=== PATIENT | female | born 1940 | race Caucasian/White ===

== ENCOUNTER 2019-04-25 18:28 | Inpatient (IN) | payer MEDICARE, OTHER ==
[~2019-04-25] VITALS: Ht 167 cm; Wt 6.4 kg
[~2019-04-25 18:28] MED LIST: ACHD5005 PO; BISA5TAB8 PO; DILT120C85 PO; FERR256T PO; HUM100VI SQ; HUM100VI12 SQ; HUM100VI15 SQ; HUM10VIA2 SQ; IBUP-30 PO; INSN1U SQ; INSU100V31 SQ; IRON150C3 PO; LISI1TAB10 PO; LISI1TAB26 PO; LISI40TA PO; MIRT15TA3 PO; NPH,100V SQ; SCOPOLAMINE 1.5 MG (TRANSDERM-SCOP) PATCH TOP SCH
[2019-04-25 18:44] LABS: BASOPHILS % (AUTO) 0 % (0-10); EOSINOPHILS % (AUTO) 0 % (0-10); HEMATOCRIT 35 % (35-52); HEMOGLOBIN 10.5 G/DL (11.5-16.0); LYMPHOCYTES # (AUTO) 0.8 X 10^3 (1.0-4.0); LYMPHOCYTES % (AUTO) 5 % (12-44); MEAN CORPUSCULAR HEMOGLOBIN 28 PG (25-34); MEAN CORPUSCULAR HGB CONC 30 G/DL (32-36); MEAN CORPUSCULAR VOLUME 93 FL (80-99); MONOCYTES # (AUTO) 0.9 X 10^3 (0.0-1.0); MONOCYTES % (AUTO) 5 % (0-12); NEUTROPHILS % (AUTO) 91 % (42-75); PLATELET COUNT 505 10^3/uL (130-400); RED CELL DISTRIBUTION WIDTH 15.7 % (10.0-14.5); WHITE BLOOD COUNT 18.7 10^3/uL (4.3-11.0)
[2019-04-25] MEDS ORDERED: inSUlin (REGULAR) HUMAN 1 UNIT/0.01 ML (CHARGE PER UNIT) IJ ONE (18:45)
[2019-04-25 18:56] LABS: INR 1.5 (0.8-1.4); PROTHROMBIN TIME PATIENT 18.9 SEC (12.2-14.7)
[2019-04-25] MEDS ORDERED: inSUlin (REGULAR) HUMAN 1 UNIT/0.01 ML (CHARGE PER UNIT) IV ONE ×2 (19:00→20:00)
[2019-04-25] MEDS ORDERED: NS IV 1000 ML 1,000 ML ONE (19:02)
--- NOTE | 2019-04-25 19:08 | ED General ---
General Chief Complaint: Altered Mental Status Stated Complaint: ALTERED MENTAL STATUS Nursing Triage Note: PT PRESENTS TO ED VIA EMS FROM HOME WITH CONCERNS OF AMS SINCE THIS AM BUT PROGRESSIVLEY GETTING WORSE TODAY. PT FAMILY DENIES ANY RECENT KNOWN FALLS. ACCORDING TO EMS PT NORMALLY VERBAL AND RESPONSIVE. UPON PT ARRIVAL TO ED PT EYES OPEN AND SHE IS ABLE TO FOLLOW SOME DIRECTIONS BUT REMAINS NON VERBAL Nursing Sepsis Screen: Possible Severe Sepsis Risk Source of Information: Patient, Old Records Exam Limitations: No Limitations History of Present Illness Date Seen by Provider: Apr 25, 2019 Time Seen by Provider: 18:29 Initial Comments This 79-year-old woman presents to the emergency room with significantly altered mental status. She is also hypotensive with systolic blood pressures in the 80s and an immeasurably high blood sugar. Family reports she was last known to be normal sometime early yesterday. She was not quite herself yesterday evening. She lives with her at home. When her children check on her this evening, they found her in her current state. She has skin tears and abrasions to her elbows but there is no known trauma. She is responsive to pain but is not talking at this time other than answering "yes" when asked about pain. She is also noted to have arrhythmia on the criminal attorney. Family reports she has been declining in recent years and has not been eating or drinking well recentl y. They report she is a DO NOT RESUSCITATE status. Her primary care provider is Dr. Velasquez. Family notes she has blind from macular degeneration. Allergies and Home Medications Allergies Coded Allergies: No Known Drug Allergies (Verified , 03/07/15) Home Medications Insulin NPH Human Isophane 100 Unit/1 Ml Vial, 15 UNIT SQ DAILY Prescribed by: DANG VELASQUEZ on 05/20/15 1113 Iron Polysaccharide Complex 150 Mg Capsule, 150 MG PO DAILY@0700 Prescribed by: DANG VELASQUEZ on 05/20/15 1111 Mirtazapine 15 Mg Tab.rapdis, 15 MG PO HS Prescribed by: DANG VELASQUEZ on 05/20/15 1554 Patient Home Medication List Home Medication List Reviewed: Yes Review of Systems Review of Systems Constitutional: no symptoms reported EENTM: no symptoms reported Respiratory: no symptoms reported Cardiovascular: see HPI Gastrointestinal: no symptoms reported Genitourinary: no symptoms reported : No Musculoskeletal: no symptoms reported Skin: no symptoms reported Psychiatric/Neurological: See HPI Hematologic/Lymphatic: No Symptoms Reported Immunological/Allergic: no symptoms reported Past Tynezgb-Vojivc-Kbdmjy Hx Past Med/Social Hx: Reviewed and Corrections made Patient Social History Alcohol Use: Denies Use Recreational Drug Use: No Smoking Status: Unknown if Ever Smoked Recent Foreign Travel: No Contact w/Someone Who Travel: No Recent Infectious Disease Expo: No Immunizations Up To Date Date of Influenza Vaccine: Dec 05, 2014 Past Medical History Surgeries: Yes (LESION FROM NARE) Respiratory: No Currently Using CPAP: No Cardiac: Yes Hypertension Neurological: No Reproductive Disorders: No Female Reproductive Disorders: Denies Sexually Transmitted Disease: No HIV/AIDS: No Gastrointestinal: No Musculoskeletal: No Endocrine: Yes Diabetes, 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 Hearing Impairment: Hard of Hearing Cancer: No Psychosocial: No Integumentary: No Recent Skin Changes Blood Disorders: No Adverse Reaction/Blood Tranf: No Family Medical History Alcoholism 09 SISTER Family history: Allergy 09 SISTER Family history: Diabetes mellitus 03 MOTHER 09 SISTER Family history: Hypertension 03 MOTHER 09 BROTHER History of - respiratory disease 09 BROTHER Hypercholesterolemia 09 BROTHER No Family History of: Abdominal aortic aneurysm Lincoln's disease Aphasia Cancer Cancer of colon Cataract Chest pain Congenital heart disease Congestive heart failure Cystic fibrosis Dementia Dysphagia Family history: Alzheimer's disease Family history: Arthritis Family history: Asthma Family history: Breast disease Family history: Cardiovascular disease Family history: Coronary thrombosis Family history: Gastrointestinal disease Family history: Glaucoma Family history: Osteoporosis Family history: Thyroid disorder Headache Hearing loss Heart disease Hereditary disease History of - anemia History of - disorder History of drug abuse Human immunodeficiency virus (HIV) seropositivity Infertile Kidney disease Malignant neoplasm of lung Myocardial infarction Parkinson's disease Prostate cancer Psychotic disorder Seizure disorder Stroke Tuberculosis Visual impairment No Pertinent Family Hx Physical Exam-Suspected Sepsis Physical Exam Vital Signs Vital Signs - First Documented 04/25/19 04/25/19 18:42 21:28 Temp 35.0 Pulse 59 Resp 30 B/P (MAP) 91/60 (70) Pulse Ox 98 O2 Delivery Room Air Capillary Refill : Greater Than 3 Seconds Blood Pressure Mean: 70 Height, Weight, BMI Height: 5'1.00" Weight: 148lbs. 0.0oz. 67.521219kh; 22.00 BMI Method: General Appearance: No Apparent Distress, WD/WN, Other (minimally responsive) HEENT: PERRL/EOMI, Normal ENT Inspection Neck: Normal Inspection; No JVD Respiratory: Lungs Clear, Normal Breath Sounds, No Accessory Muscle Use, No Respiratory Distress, Other (slightly) Cardiovascular: No Edema, No Murmur, Irregularly Irregular Gastrointestinal: Normal Bowel Sounds, Soft, Tenderness (suprapubic region) Extremity: Normal Inspection, No Pedal Edema Neurologic/Psychiatric: Alert, Other (response to pain and has spontaneous movement of the extremities. Answers "yes" when questioned about pain in the abdomen. Patient is not otherwise having any meaningful conversation or responses. She does localize to pain.) Skin: normal color, warm/dry Focused Exam Lactate Level 04/25/19 18:30: Lactic Acid Level 7.75*H Lactic Acid Level Laboratory Tests Test 04/25/19 18:30 Lactic Acid Level 7.75 MMOL/L (0.50-2.00) *H Progress/Results/Core Measures Suspected Sepsis Recent Fever Within 48 Hours: No Infection Criteria Present: Suspected New Infection New/Unexplained Altered Menta: Yes Sepsis Screen: Possible Severe Sepsis Risk SIRS Temperature: Pulse: 59 Respiratory Rate: 30 Laboratory Tests 04/25/19 18:30: White Blood Count 18.7H Blood Pressure 91 /60 Mean: 70 04/25/19 18:30: Lactic Acid Level 7.75*H Laboratory Tests 04/25/19 18:30: Creatinine 5.15H, INR Comment 1.5H, Platelet Count 505H, Total Bilirubin 0.4 Results/Orders Lab Results Laboratory Tests Test 04/25/19 18:30 04/25/19 19:45 04/25/19 19:51 Range/Units White Blood Count 18.7 H 4.3-11.0 10^3/uL Red Blood Count 3.76 L 4.35-5.85 10^6/uL Hemoglobin 10.5 L 11.5-16.0 G/DL Hematocrit 35 35-52 % Mean Corpuscular Volume 93 80-99 FL Mean Corpuscular Hemoglobin 28 25-34 PG Mean Corpuscular Hemoglobin Concent 30 L 32-36 G/DL Red Cell Distribution Width 15.7 H 10.0-14.5 % Platelet Count 505 H 130-400 10^3/uL Mean Platelet Volume 13.0 H 7.4-10.4 FL Neutrophils (%) (Auto) 91 H 42-75 % Lymphocytes (%) (Auto) 5 L 12-44 % Monocytes (%) (Auto) 5 0-12 % Eosinophils (%) (Auto) 0 0-10 % Basophils (%) (Auto) 0 0-10 % Neutrophils # (Auto) 17.0 H 1.8-7.8 X 10^3 Lymphocytes # (Auto) 0.8 L 1.0-4.0 X 10^3 Monocytes # (Auto) 0.9 0.0-1.0 X 10^3 Eosinophils # (Auto) 0.0 0.0-0.3 10^3/uL Basophils # (Auto) 0.0 0.0-0.1 10^3/uL Neutrophils % (Manual) 87 % Lymphocytes % (Manual) 6 % Monocytes % (Manual) 3 % Band Neutrophils 4 % Blood Morphology Comment NORMAL Prothrombin Time 18.9 H 12.2-14.7 SEC INR Comment 1.5 H 0.8-1.4 Activated Partial Thromboplast Time 28 24-35 SEC Sodium Level 116 *L 135-145 MMOL/L Potassium Level 5.7 H 3.6-5.0 MMOL/L Chloride Level 83 L 98-107 MMOL/L Carbon Dioxide Level < 5 *L 21-32 MMOL/L Anion Gap 28 H 5-14 MMOL/L Blood Urea Nitrogen 146 *H 7-18 MG/DL Creatinine 5.15 H 0.60-1.30 MG/DL Estimat Glomerular Filtration Rate 8 BUN/Creatinine Ratio 28 Glucose Level 1705 *H 70-105 MG/DL Lactic Acid Level 7.75 *H 0.50-2.00 MMOL/L Calcium Level 9.0 8.5-10.1 MG/DL Corrected Calcium 9.3 8.5-10.1 MG/DL Total Bilirubin 0.4 0.1-1.0 MG/DL Aspartate Amino Transf (AST/SGOT) 66 H 5-34 U/L Alanine Aminotransferase (ALT/SGPT) 23 0-55 U/L Alkaline Phosphatase 93 40-136 U/L Troponin I 84.769 *H <0.028 NG/ML C-Reactive Protein High Sensitivity 10.84 H 0.00-0.50 MG/DL Total Protein 6.5 6.4-8.2 GM/DL Albumin 3.6 3.2-4.5 GM/DL Urine Color YELLOW Urine Clarity CLEAR Urine pH 7.5 5-9 Urine Specific [place] 1.010 L 1.016-1.022 Urine Protein 1+ H NEGATIVE Urine Glucose (UA) 3+ H NEGATIVE Urine Ketones NEGATIVE NEGATIVE Urine Nitrite NEGATIVE NEGATIVE Urine Bilirubin NEGATIVE NEGATIVE Urine Urobilinogen 0.2 < = 1.0 MG/DL Urine Leukocyte Esterase TRACE H NEGATIVE Urine RBC (Auto) TRACE-I NEGATIVE Urine RBC RARE /HPF Urine WBC 10-25 H /HPF Urine Squamous Epithelial Cells 0-2 /HPF Urine Crystals NONE /LPF Urine Bacteria MODERATE H /HPF Urine Casts NONE /LPF Urine Mucus NEGATIVE /LPF Urine Culture Indicated YES Glucometer > 600 *H 70-110 MG/DL Micro Results Microbiology 04/25/19 Influenza Types A,B Antigen ([facility]) - Final, Complete My Orders Orders - FIDEL WALLS MD Accucheck Stat ONCE (04/25/19 18:35) Cbc With Automated Diff (04/25/19 18:35) Comprehensive Metabolic Panel (04/25/19 18:35) Blood Culture (04/25/19 18:35) Sputum Culture (04/25/19 18:35) Urinalysis (04/25/19 18:35) Protime With Inr (04/25/19 18:35) Partial Thromboplastin Time (04/25/19 18:35) Chest 1 View, Ap/Pa Only (04/25/19 18:35) Ed Iv/Invasive Line Start (04/25/19 18:35) Ed Iv/Invasive Line Start (04/25/19 18:35) Vital Signs Adult Sepsis Patie Q15M (04/25/19 18:35) O2 (04/25/19 18:35) Remove Rings In Anticipation O (04/25/19 18:35) Lactic Acid Analyzer (04/25/19 18:35) Influenza A And B Antigens (04/25/19 18:35) Insulin (Regular) Human (Humulin R (Per (04/25/19 18:45) Accucheck Stat ONCE (04/25/19 18:44) Accucheck Stat ONCE (04/25/19 18:44) Accucheck Stat ONCE (04/25/19 18:44) Insulin (Regular) Human (Humulin R (Per (04/25/19 19:00) Manual Differential (04/25/19 18:30) Salguero Cath (04/25/19 18:51) Ct Head Wo-R/O Stroke (04/25/19 18:53) Ns Iv 1000 Ml (Sodium Chloride 0.9%) (04/25/19 19:02) Ekg Tracing (04/25/19 19:14) Hs C Reactive Protein (04/25/19 19:15) Troponin I (04/25/19 19:15) Insulin (Regular) Human (Humulin R (Per (04/25/19 20:00) Urine Culture (04/25/19 19:45) Morphine Injection (Morphine Injection (04/25/19 20:45) Morphine Injection (Morphine Injection (04/25/19 21:04) Medications Given in ED Current Medications Medications Dose Ordered Sig/Delvis Route Start Time Stop Time Status Last Admin Dose Admin Insulin Human Regular 5 unit ONCE ONCE IV 04/25/19 19:00 04/25/19 19:01 DC 04/25/19 18:51 5 UNIT Insulin Human Regular 5 unit ONCE ONCE IV 04/25/19 20:00 04/25/19 20:01 DC 04/25/19 19:56 5 UNIT Sodium Chloride 1,000 ml @ STK-MED ONCE .ROUTE 04/25/19 19:02 04/25/19 19:08 DC 04/25/19 19:12 1,000 MLS/HR Vital Signs/I&O 04/25/19 04/25/19 04/25/19 04/25/19 18:42 21:25 21:28 21:48 Temp 35.0 30.0 Pulse 59 61 Resp 30 36 B/P (MAP) 91/60 (70) 89/60 Pulse Ox 98 71 O2 Delivery Room Air Room Air Capillary Refill : Greater Than 3 Seconds Blood Pressure Mean: 70 Progress Note : Time: 20:22 Progress Note Last known well time was sometime yesterday. Septic workup was pursued along with CT of the head. Patient was found to have several severe conditions including subacute right-sided CVA, non-ST elevation myocardial infarction with an extremely high troponin, severe hyperglycemia, acute renal failure, and urinary tract infection. Prognosis is extremely poor. Case was discussed with Dr. Velasquez. He and I agree that aggressive care is futile. Even if Mrs. Lugo survives for a time, she will not recover quality of life. The situation was discussed with the patient's son and [id number]. They have elected comfort care. They will assess the situation in the morning to determine if they would like transfer to a residential on hospice. We are looking to patient's son as next of kin for decision making as patient's has significant dementia. Dr. Velasquez and family report is not a competent decision maker. ECG Initial ECG Impression Date: Apr 25, 2019 Initial ECG Impression Time: 19:06 Initial ECG Rate: 92 Initial ECG Impression: Atrial Fibrillation Comment Atrial fibrillation with left bundle branch block. No ST elevation or depression. No axis deviation. Diagnostic Imaging Diagonstic Imaging: Xray Plain Films/CT/US/NM/MRI: chest Comments Chest x-ray viewed by me an report reviewed. See report below: NAME: CAMPBELL [employer]U [employer] REC#: [id number] PT STATUS: REG ER : 1940 PHYSICIAN: FIDEL WALLS MD ADMIT DATE: 04/25/19/ER Draft Date of Exam:04/25/19 CHEST 1 VIEW, AP/PA ONLY INDICATION: Acute mental status changes, progressively getting worse. FINDINGS: Frontal view of the chest demonstrates the lungs to be clear. Heart, mediastinum, and pulmonary vascularity are normal. There are no pleural effusions. IMPRESSION: Negative chest Dictated on workstation # [id number] Dict: 04/25/191936 Trans: 04/25/191938 [facility] [id number] Interpreted by: JAY JAY MANN MD Diagonstic Imaging: CT Plain Films/CT/US/NM/MRI: head Comments CT head viewed by me and report reviewed. See report below: NAME: CAMPBELL CHU [employer] REC#: [id number] PT STATUS: REG ER : 1940 PHYSICIAN: FIDEL WALLS MD ADMIT DATE: 04/25/19/ER Signed Date of Exam:04/25/19 CT HEAD WO-R/O STROKE PROCEDURE: CT head wo r/o stroke. TECHNIQUE: Multiple contiguous axial images were obtained through the brain without the use of intravenous contrast. Auto Exposure Controls were utilized during the CT exam to meet ALARA standards for radiation dose reduction. INDICATION: Acute mental status changes progressively getting worse today. No known recent falls. Patient is normally verbal and responsive. FINDINGS: Noncontrast CT scan of the head demonstrates a subacute infarct of the right posterior parietal lobe. No mass effect, midline shift, or hemorrhage is present. 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 Atrophy is present. Osseous structures are normal. IMPRESSION: 1. There is a subacute nonhemorrhagic infarct in the right parietal lobe. 2. 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 Dictated by: Dictated on workstation # [id number] Dict: 04/25/191938 Trans: 04/25/191956 [facility] [id number] Interpreted by: JAY JAY MANN MD Electronically signed by: JAY JAY MANN MD 04/25/191956 Departure Communication (Admissions) Time/Spoke to Admitting Phy: 19:55 Dr. Velasquez Impression Primary Impression: Acute CVA (cerebrovascular accident) Additional Impressions: Non-ST elevation myocardial infarction (NSTEMI) Hyperglycemia Acute renal failure Qualified Codes: N17.9 - Acute kidney failure, unspecified Urinary tract infection Qualified Codes: N39.0 - Urinary tract infection, site not specified Need for comfort care Disposition: ADMITTED INPATIENT Condition: Critical Admissions Decision to Admit Reason: Admit from ER (General) Decision to Admit/Date: Apr 25, 2019 Time/Decision to Admit Time: 18:30 Departure-Patient Inst. Referrals: DANG VELASQUEZ MD (PCP/Family) Primary Care Physician FIDEL WALLS MD Apr 25, 2019 7:08 pm
[2019-04-25 19:13] LABS: ALANINE AMINOTRANSFERASE 23 U/L (0-55); ALBUMIN 3.6 GM/DL (3.2-4.5); ALKALINE PHOSPHATASE 93 U/L (40-136); BILIRUBIN,TOTAL 0.4 MG/DL (0.1-1.0); BUN/CREATININE RATIO 28; CHLORIDE 83 MMOL/L (98-107); CREATININE SERUM 5.15 MG/DL (0.60-1.30); GFR ESTIMATED 8; POTASSIUM 5.7 MMOL/L (3.6-5.0); TOTAL PROTEIN 6.5 GM/DL (6.4-8.2)
[2019-04-25 19:16] LABS: BAND NEUTROPHILS 4 %; LYMPHOCYTES % (MANUAL) 6 %; MONOCYTES % (MANUAL) 3 %; NEUTROPHILS % (MANUAL) 87 %; RBC MORPH NORMAL
[2019-04-25 19:38] LABS: SODIUM 116 MMOL/L (135-145)
[2019-04-25 19:40] LABS: CARBON DIOXIDE < 5 MMOL/L (21-32)
--- NOTE | 2019-04-25 19:40 | Diagnostic Imaging Report ---
INDICATION: Acute mental status changes, progressively getting worse. FINDINGS: Frontal view of the chest demonstrates the lungs to be clear. Heart, mediastinum, and pulmonary vascularity are normal. There are no pleural effusions. IMPRESSION: Negative chest Dictated by: Dictated on workstation # [id number]
--- NOTE | 2019-04-25 19:50 | Diagnostic Imaging Report ---
PROCEDURE: CT head wo r/o stroke. TECHNIQUE: Multiple contiguous axial images were obtained through the brain without the use of intravenous contrast. Auto Exposure Controls were utilized during the CT exam to meet ALARA standards for radiation dose reduction. INDICATION: Acute mental status changes progressively getting worse today. No known recent falls. Patient is normally verbal and responsive. FINDINGS: Noncontrast CT scan of the head demonstrates a subacute infarct of the right posterior parietal lobe. No mass effect, midline shift, or hemorrhage is present. 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 Atrophy is present. Osseous structures are normal. IMPRESSION: 1. There is a subacute nonhemorrhagic infarct in the right parietal lobe. 2. 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 Dictated by: Dictated on workstation # [id number]
--- NOTE | 2019-04-25 19:51 | NUR ---
reported to dr spring blood glucose per finger stick greater than 600
[2019-04-25 19:53] LABS: BILIRUBIN,URINE NEGATIVE (NEGATIVE); CLARITY,URINE CLEAR; COLOR,URINE YELLOW; GLUCOSE, URINE (UA) 3+ (NEGATIVE); KETONES,URINE NEGATIVE (NEGATIVE); LEUKOCYTE ESTERASE ,URINE TRACE (NEGATIVE); NITRITE,URINE NEGATIVE (NEGATIVE); PH,URINE 7.5 (5-9); PROTEIN,URINE 1+ (NEGATIVE)
[2019-04-25 20:00] LABS: BACTERIA,URINE MODERATE /HPF; RBC,URINE RARE /HPF
[2019-04-25 20:01] LABS: SQUAMOUS EPITHELIAL CELL,UR 0-2 /HPF
[2019-04-25 20:12] LABS: GLUCOSE 1705 MG/DL (70-105)
--- NOTE | 2019-04-25 20:29 | NUR ---
MONITORING STOPPED AT THIS TIME PER DR SOMMER, PATIENT IS NOW COMFORT CARE. STUDENT DEVELOPMENT ADVISOR CALLED FOR ROOM ASSIGNMENT.
[2019-04-25] MEDS ORDERED: morphine INJ 10 MG/ML 1ML (SYR OR VIAL) IVP STA ×2 (20:45→21:04)
[2019-04-25] MEDS ORDERED: LORazepam INJ 2 MG/ML (ATIVAN) VIAL ONE (21:45)
[2019-04-25 21:48] VITALS: BP 89/60
[2019-04-25] MEDS ORDERED: GLYCOPYRROLATE 0.2 MG/ML (ROBINUL) 2 ML VIAL IV PRN (22:15)
[2019-04-25] MEDS ORDERED: ARTIFICAL TEARS 0.4 ML UNIT DOSE (REFRESH PLUS) OU PRN (22:15)
[2019-04-25] MEDS ORDERED: LORazepam ORAL CONCENTRATE 2 MG/ML 30 ML (ATIVAN) PO PRN (22:15)
[2019-04-25] MEDS ORDERED: ACETAMINOPHEN 650 MG SUPP (TYLENOL) PR PRN (22:15)
[2019-04-25] MEDS ORDERED: morphine INJ 4 MG/ML 1 ML (VIAL/SYRINGE) IV PRN (22:15)
[2019-04-25] MEDS ORDERED: BISACODYL 10 MG SUPP (DULCOLAX) PR PRN (22:15)
[2019-04-25] MEDS ORDERED: RT-ALBUTEROL/IPRATROPIUM 3 ML (DUONEB) VIAL INH PRN (22:15)
[2019-04-25] MEDS ORDERED: ONDANSETRON 4 MG/2 ML (SDV) Z0FRAN IV PRN (22:15)
[2019-04-25] MEDS ORDERED: ATROPINE 1% OPHTHALMIC SOLN 2 ML SL PRN (22:15)
[2019-04-25] MEDS ORDERED: PROMETHAZINE INJ 25 MG/ML (PHENERGAN) AMP IV PRN (22:15)
[2019-04-25] MEDS ORDERED: SALIVA STIMULANT MOUTH SPRAY (BIOTENE) 1.5 OZ MM PRN (22:15)
[2019-04-25] MEDS ORDERED: LORazepam INJ 2 MG/ML (ATIVAN) VIAL IV PRN (22:15)
--- NOTE | 2019-04-26 03:46 | NUR ---
Post-mortem care provided at this time. IV and Salguero removed. Family notified at 0333.
--- NOTE | 2019-04-26 05:10 | NUR ---
Two rings that were on the pt were taken by family.
--- NOTE | 2019-04-26 05:18 | NUR ---
Susu mccormack Severy notified pt is ready to be picked up.
--- OUTSIDE RECORDS SUMMARY | 2019-04-27 20:35 | XMS REPORT | Continuity of Care Document ---
Author Organization Unknown Address Unknown Phone Unavailable Allergies Active Description Code Type Severity Reaction Onset Reported/Identified Relationship to Patient Clinical Status Yes No Known Drug Allergies [id number] Drug Allergy Unknown N/A 03/07/2015 Medications There is no data. Problems Date Dx Coded Attending Type Code Diagnosis Diagnosed By 12/29/2012 IWONA ALAS, DANG Bateman Ot 250. 52 12/29/2012 DANG BUSTILLO MD Ot 250. 62 12/29/2012 IWONA ALAS, DANG Bateman Ot 250. 82 12/29/2012 DANG BUSTILLO MD Ot 272. 4 12/29/2012 DANG BUSTILLO MD Ot 276. 1 12/29/2012 DANG BUSTILLO MD Ot 280. 9 12/29/2012 DANG BUSTILLO MD Ot 357. 2 12/29/2012 DANG BUSTILLO MD Ot 362. 01 12/29/2012 DANG BUSTILLO MD Ot 369. 4 12/29/2012 IWONA ALAS, DANG Bateman Ot 401. 9 12/29/2012 IWONA ALAS, DANG Bateman Ot 799. 3 12/29/2012 DANG BUSTILLO MD Ot E944 .3 12/29/2012 DANG BUSTILLO MD Ot V04. 81 12/29/2012 DANG BUSTILLO MD Ot V15. 81 12/29/2012 DANG BUSTILLO MD Ot V58. 67 01/26/2013 LOWE DDS, NEO Ot 173.3 1 01/26/2013 LOWE DDS, NEO Ot 250.0 0 01/26/2013 LOWE DDS, NEO Ot V64.1 07/26/2013 ARACELIS ALAS, CUCO Ot 173.31 07/26/2013 ARACELIS ALAS, CUCO Ot 250.00 07/26/2013 ARACELIS ALAS, CUCO Ot V58.67 12/23/2014 DANG BUSTILLO MD Ot E11. 9 TYPE 2 DIABETES MELLITUS WITHOUT COMPLIC 12/23/2014 DANG BUSTILLO MD Ot K59. 00 CONSTIPATION, UNSPECIFIED 12/23/2014 IWONA ALAS, DANG Bateman Ot K62. 89 OTHER SPECIFIED DISEASES OF ANUS AND REC 12/23/2014 IWONA ALAS, DANG Bateman Ot R10. 9 UNSPECIFIED ABDOMINAL PAIN 12/25/2014 LOWE DDS, NEO Ot 173.3 1 12/25/2014 LOWE DDS, NEO Ot V72.6 3 12/25/2014 LOWE DDS, NEO Ot V74.8 12/25/2014 LOWE DDS, NEO Ot 173.3 1 12/25/2014 LOWE DDS, NEO Ot V72.8 4 12/25/2014 ARACELIS ALAS, TAKAAKI Ot 709.9 12/25/2014 ARACELIS ALAS, TAKAAKI Ot V72.84 02/28/2015 LOWE DDS, NEO Ot 173.3 1 02/28/2015 LOWE DDS, NEO Ot V72.6 3 02/28/2015 LOWE DDS, NEO Ot V74.8 02/28/2015 LOWE DDS, NEO Ot 173.3 1 02/28/2015 LOWE DDS, NEO Ot V72.8 4 02/28/2015 ARACELIS ALAS, TAKAAKI Ot 709.9 02/28/2015 ARACELIS ALAS, TAKAAKI Ot V72.84 02/28/2015 IWONA ALAS, DANG Bateman Ot D50. 9 IRON DEFICIENCY ANEMIA, UNSPECIFIED 02/28/2015 IWONA ALAS, DANG Bateman Ot K29. 71 GASTRITIS, UNSPECIFIED, WITH BLEEDING 02/28/2015 IWONA ALAS, DANG Bateman Ot K29. 80 DUODENITIS WITHOUT BLEEDING 02/28/2015 IWONA ALAS, DAGN Bateman Ot K31. 7 POLYP OF STOMACH AND DUODENUM 03/07/2015 DANG BUSTILLO MD, Ot D50. 9 IRON DEFICIENCY ANEMIA, UNSPECIFIED 03/07/2015 DANG BUSTILLO MD, Ot K59. 00 CONSTIPATION, UNSPECIFIED 03/07/2015 IWONA ALAS, DANG Bateman Ot R19. 5 OTHER FECAL ABNORMALITIES 03/07/2015 DANG BUSTILLO MD, Ot Z53. 09 PROC/TRTMT NOT CARRIED OUT BECAUSE OF CO 05/13/2015 DANG BUSTILLO MD, Ot D50. 9 IRON DEFICIENCY ANEMIA, UNSPECIFIED 05/13/2015 IWONA ALAS, DANG Bateman Ot E11.319 TYPE 2 DIABETES W UNSP DIABETIC RTNOP W/ 05/13/2015 DANG BUSTILLO MD Ot E11. 42 TYPE 2 DIABETES MELLITUS WITH DIABETIC P 05/13/2015 DANG BUSTILLO MD, Ot E11. 43 TYPE 2 DIABETES W DIABETIC AUTONOMIC (PO 05/13/2015 DANG BUSTILLO MD, Ot E11.649 TYPE 2 DIABETES MELLITUS WITH HYPOGLYCEM 05/13/2015 DANG BUSTILLO MD Ot E43 UNSPECIFIED SEVERE PROTEIN-CALORIE MALNU 05/13/2015 DANG BUSTILLO MD Ot E86. 0 DEHYDRATION 05/13/2015 DANG BUSTILLO MD Ot E87. 1 HYPO-OSMOLALITY AND HYPONATREMIA 05/13/2015 DANG BUSTILLO MD, Ot E87. 5 HYPERKALEMIA 05/13/2015 DANG BUSTILLO MD, Ot I10 ESSENTIAL (PRIMARY) HYPERTENSION 05/13/2015 DANG BUSTILLO MD, Ot K56. 41 FECAL IMPACTION 05/13/2015 DANG BUSTILLO MD, Ot N39. 0 URINARY TRACT INFECTION, SITE NOT SPECIF 05/13/2015 DANG BUSTILLO MD Ot R23. 4 CHANGES IN SKIN TEXTURE 05/13/2015 DANG BUSTILLO MD Ot R62. 7 ADULT FAILURE TO THRIVE 05/13/2015 DANG BUSTILLO MD, Ot R63. 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 19 PATIENT'S NONCOMPLIANCE W [facility] TR 05/20/2015 DANG BUSTILLO MD Ot D50. 9 05/20/2015 DANG BUSTILLO MD, Ot E11. 43 05/20/2015 DANG BUSTILLO MD Ot E46 05/20/2015 DANG BUSTILLO MD Ot K86. 9 05/20/2015 DANG BUSTILLO MD, Ot R19. 05 05/20/2015 DANG BUSTILLO MD Ot B96. 20 UNSP ESCHERICHIA COLI THE CAUSE OF DI 05/20/2015 DANG BUSTILLO MD, Ot D50. 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 1 HYPO-OSMOLALITY AND HYPONATREMIA 05/20/2015 DANG BUSTILLO MD Ot K59. 00 CONSTIPATION, UNSPECIFIED 05/20/2015 DANG BUSTILLO MD Ot K86. 9 DISEASE OF PANCREAS, UNSPECIFIED 05/20/2015 DANG BUSTILLO MD Ot L90. 5 SCAR CONDITIONS AND FIBROSIS OF SKIN 05/20/2015 DANG BUSTILLO MD Ot N39. 0 URINARY TRACT INFECTION, SITE NOT SPECIF 05/20/2015 DANG BUSTILLO MD Ot R19. 05 PERIUMBILIC SWELLING, MASS OR LUMP 05/22/2015 DANG BUSTILLO MD Ot D50. 9 05/22/2015 DANG BUSTILLO MD Ot R63. 4 06/03/2015 DANG BUSTILLO MD Ot D50. 9 IRON DEFICIENCY ANEMIA, UNSPECIFIED 06/03/2015 DANG BUSTILLO MD Ot R63. 4 ABNORMAL WEIGHT LOSS 06/18/2015 DANG BUSTILLO MD Ot D64. 9 ANEMIA, UNSPECIFIED 06/18/2015 DANG BUSTILLO MD Ot E11. 9 TYPE 2 DIABETES MELLITUS WITHOUT COMPLIC 06/18/2015 DANG BUSTILLO MD Ot E46 UNSPECIFIED PROTEIN-CALORIE MALNUTRITION 06/18/2015 DANG BUSTILLO MD Ot I10 ESSENTIAL (PRIMARY) HYPERTENSION 04/25/2019 DANG BUSTILLO MD Ot D64. 9 ANEMIA, UNSPECIFIED 04/25/2019 DANG BUSTILLO MD Ot R63. 4 ABNORMAL WEIGHT LOSS 04/25/2019 DANG BUSTILLO MD Ot Z01.818 ENCOUNTER FOR OTHER PREPROCEDURAL EXAMIN 04/25/2019 DANG BUSTILLO MD Ot D50. 9 IRON DEFICIENCY ANEMIA, UNSPECIFIED 04/25/2019 DANG BUSTILLO MD Ot R63. 4 ABNORMAL WEIGHT LOSS 04/25/2019 DANG BUSTILLO MD Ot Z01.818 ENCOUNTER FOR OTHER PREPROCEDURAL EXAMIN 04/25/2019 DANG BUSTILLO MD Ot D50. 9 IRON DEFICIENCY ANEMIA, UNSPECIFIED 04/25/2019 DANG BUSTILLO MD Ot R63. 4 ABNORMAL WEIGHT LOSS 04/25/2019 DANG BUSTILLO MD D Ot D64. 9 ANEMIA, UNSPECIFIED 04/25/2019 IWONA ALAS, DANG Bateman Ot E11. 9 TYPE 2 DIABETES MELLITUS WITHOUT COMPLIC 04/25/2019 IWONA ALAS, DANG Bateman Ot E46 UNSPECIFIED PROTEIN-CALORIE MALNUTRITION 04/25/2019 IWONA ALAS, DANG Bateman Ot I10 ESSENTIAL (PRIMARY) HYPERTENSION 04/26/2019 IWONA ALAS, DANG Bateman Ot D64. 9 ANEMIA, UNSPECIFIED 04/26/2019 IWONA ALAS, DANG Bateman Ot R63. 4 ABNORMAL WEIGHT LOSS 04/26/2019 IWONA ALAS, DANG Bateman Ot Z01.818 ENCOUNTER FOR OTHER PREPROCEDURAL EXAMIN 04/26/2019 IWONA ALAS, DANG Bateman Ot D50. 9 IRON DEFICIENCY ANEMIA, UNSPECIFIED 04/26/2019 IWOAN ALAS, DANG Bateman Ot R63. 4 ABNORMAL WEIGHT LOSS 04/26/2019 IWONA ALAS, DANG Bateman Ot Z01.818 ENCOUNTER FOR OTHER PREPROCEDURAL EXAMIN 04/26/2019 DANG BUSTILLO MD Ot D50. 9 IRON DEFICIENCY ANEMIA, UNSPECIFIED 04/26/2019 IWONA ALAS, DANG Bateman Ot R63. 4 ABNORMAL WEIGHT LOSS 04/26/2019 IWONA ALAS, DANG Bateman Ot D64. 9 ANEMIA, UNSPECIFIED 04/26/2019 IWONA ALAS, DANG Bateman Ot E11. 9 TYPE 2 DIABETES MELLITUS WITHOUT COMPLIC 04/26/2019 IWONA ALAS, DANG Bateman Ot E46 UNSPECIFIED PROTEIN-CALORIE MALNUTRITION 04/26/2019 IWONA ALAS, DANG Bateman Ot I10 ESSENTIAL (PRIMARY) HYPERTENSION 04/26/2019 IWONA ALAS, DANG Bateman Ot D64. 9 ANEMIA, UNSPECIFIED 04/26/2019 IWONA ALAS, DANG Bateman Ot R63. 4 ABNORMAL WEIGHT LOSS 04/26/2019 IWONA ALAS, DANG Bateman Ot Z01.818 ENCOUNTER FOR OTHER PREPROCEDURAL EXAMIN 04/26/2019 DANG BUSTILLO MD Ot D50. 9 IRON DEFICIENCY ANEMIA, UNSPECIFIED 04/26/2019 IWONA ALAS, DANG Bateman Ot R63. 4 ABNORMAL WEIGHT LOSS 04/26/2019 IWONA ALAS, DANG Bateman Ot Z01.818 ENCOUNTER FOR OTHER PREPROCEDURAL EXAMIN 04/26/2019 DANG BUSTILLO MD Ot D50. 9 IRON DEFICIENCY ANEMIA, UNSPECIFIED 04/26/2019 IWONA ALAS, DANG Bateman Ot R63. 4 ABNORMAL WEIGHT LOSS 04/26/2019 DANG BUSTILLO MD, Ot D64. 9 ANEMIA, UNSPECIFIED 04/26/2019 DANG BUSTILLO MD Ot E11. 9 TYPE 2 DIABETES MELLITUS WITHOUT COMPLIC 04/26/2019 DANG BUSTILLO MD Ot E46 UNSPECIFIED PROTEIN-CALORIE MALNUTRITION 04/26/2019 DANG BUSTILLO MD, Ot I10 ESSENTIAL (PRIMARY) HYPERTENSION Procedures Code Description Performed By Per formed On [id number] EX CISION OF ABD SUBCU/FASCIA, OPEN APPRO 6 Results Test Result Range Complete blood count (CBC) with automate d white blood cell (WBC) differential - 04/25/19 18:30 Blood leukocytes automated count (number/volume) 18.7 10*3/uL 4.3-11.0 Blood erythrocytes automated count (number/volume) 3.76 10*6/uL 4.35-5.85 Venous blood hemoglobin measurement (mass/volume) 10.5 g/dL 11.5-16.0 Blood hematocrit (volume fraction) 35 % 35-52 Automated erythrocyte mean corpuscular volume 93 [ foz_us] 80-99 Automated erythrocyte mean corpuscular h emoglobin (mass per erythrocyte) 28 pg 25-34 Automated erythrocyte mean corpuscular h emoglobin concentration measurement (mass/volume) 30 g/dL 32-36 Automated erythrocyte distribution width ratio 15. 7 % 10.0- 14.5 Automated blood platelet count (count/volume) 505 10*3/uL 130-400 Automated blood platelet mean volume measurement 13.0 [foz_us] 7.4-10.4 Automated blood neutrophils/100 leukocytes 91 % 42-75 Automated blood lymphocytes/100 leukocytes 5 % 12-44 Blood monocytes/100 leukocytes 5 % 0-12 Automated blood eosinophils/100 leukocytes 0 % 0-10 Automated blood basophils/100 leukocytes 0 % 0-10 Blood neutrophils automated count (number/volume) 17.0 10*3 1.8-7.8 Blood lymphocytes automated count (number/volume) 0.8 10*3 1.0-4.0 Blood monocytes automated count (number/volume) 0. 9 10*3 0.0-1.0 Automated eosinophil count 0.0 10*3/uL 0 .0-0.3 Automated blood basophil count (count/volume) 0.0 10*3/uL 0.0-0.1 Blood lactic acid measurement (moles/vol ume) - 04/25/19 18:30 Blood lactic acid measurement (moles/volume) 7.75 mmol/L 0.50-2.00 PT panel in platelet poor plasma by coag ulation assay - 04/25/19 18:30 Prothrombin time (PT) in platelet poor plasma by coagu lation assay 18.9 s 12.2-14.7 INR in platelet poor plasma or blood by coagulation as say 1.5 0.8-1.4 Activated partial thromboplastin time (a PTT) in platelet poor plasma bycoagulation assay - 04/25/19 18:30 Activated partial thromboplastin time (a PTT) in platelet poor plasma bycoagulation assay 28 s 24-35 Comprehensive metabolic panel - 04/25/19 18:30 Serum or plasma sodium measurement (moles/volume) 116 mmol/L 135-145 Serum or plasma potassium measurement (moles/volume) 5.7 mmol/L 3.6-5.0 Serum or plasma chloride measurement (moles/volume) 83 mmol/L 98-107 Carbon dioxide < mmol/L 21-32 Serum or plasma anion gap determination (moles/volume) 28 mmol/L 5-14 Serum or plasma urea nitrogen measurement (mass/volume ) 146 mg/dL 7-18 Serum or plasma creatinine measurement (mass/volume) 5.15 mg/dL 0.60-1.30 Serum or plasma urea nitrogen/creatinine mass ratio 28 NRG Serum or plasma creatinine measurement w ith calculation of estimated glomerular filtration rate 8 NRG Serum or plasma glucose measurement (mass/volume) 1705 mg/dL 70-105 Serum or plasma calcium measurement (mass/volume) 9.0 mg/dL 8.5-10.1 Serum or plasma total bilirubin measurement (mass/volu me) 0.4 mg/dL 0.1-1.0 Serum or plasma alkaline phosphatase nirmal surement (enzymatic activity/volume) 93 U/L 40-136 Serum or plasma aspartate aminotransfera se measurement (enzymatic activity/volume) 66 U/L 5-34 Serum or plasma alanine aminotransferase measurement (enzymatic activity/volume) 23 U/L 0-55 Serum or plasma protein measurement (mass/volume) 6.5 g/dL 6.4-8.2 Serum or plasma albumin measurement (mass/volume) 3.6 g/dL 3.2-4.5 CALCIUM CORRECTED 9.3 mg/dL 8.5-10.1 Manual absolute plasma cell count - 04/14 03/05 18:30 Blood monocytes/100 leukocytes 3 % NRG Manual blood segmented neutrophils/100 leukocytes 87 % NRG Blood band neutrophils/100 leukocytes 4 % NRG Manual blood lymphocytes/100 leukocytes 6 % NRG Blood erythrocyte morphology finding identification NORMAL NRG Influenza virus A and B antigen detectio n - 04/25/19 18:30 FLU RESULT NEGATIVE FOR INFLUENZA A AND B ANTIGENS BY IA NRG Serum or plasma troponin i.cardiac measu rement (mass/volume) - 04/25/19 18:30 Serum or plasma troponin i.cardiac measurement (mass/v olume) 84.769 ng/mL <0.028 Serum or plasma C reactive protein measu rement (mass/volume) - 04/25/19 18:30 Serum or plasma C reactive protein measurement (mass/v olume) 10.84 mg/dL 0.00-0.50 Bacterial blood culture - 04/25/19 18:30 QUANTITY OF GROWTH Isolated NRG Bacterial blood culture [id number] NRG Bacterial blood culture - 04/25/19 18:46 Bacterial blood culture NG NRG Complete urinalysis with reflex to cultu re - 04/25/19 19:45 Urine color determination YELLOW NRG Urine clarity determination CLEAR NR G Urine pH measurement by test strip 7.5 5-9 Specific gravity of urine by test strip 1.010 1.016-1.022 Urine protein assay by test strip, semi-quantitative 1+ NEGATIVE Urine glucose detection by automated test strip 3+ NEGATIVE Erythrocytes detection in urine sediment by light micr oscopy TRACE-I NEGATIVE Urine ketones detection by automated test strip NE GATIVE NEGATIVE Urine nitrite detection by test strip NEGATIVE NEGATIVE Urine total bilirubin detection by test strip NEGA TIVE NEGATIVE Urine urobilinogen measurement by automated test strip (mass/volume) 0.2 mg/dL < = 1.0 Urine leukocyte esterase detection by dipstick TRA CE NEGATIVE Automated urine sediment erythrocyte cou nt by microscopy (number/high power field) RARE NRG Automated urine sediment leukocyte count by microscopy (number/high power field) [HPF] NRG Bacteria detection in urine sediment by light microsco py MODERATE NRG Squamous epithelial cells detection in u rine sediment by light microscopy 0-2 NRG Crystals detection in urine sediment by light microsco py NONE NRG Casts detection in urine sediment by light microscopy NONE NRG Mucus detection in urine sediment by light microscopy NEGATIVE NRG Complete urinalysis with reflex to culture YES NRG Bacterial urine culture - 04/25/19 19:45 Bacterial urine culture NG NRG Capillary blood glucose measurement by g lucometer (mass/volume) - 04/25/19 19:51 Capillary blood glucose measurement by glucometer (mas s/volume) > mg/dL 70-110 Encounters ACCT No. Visit Date/Time Discharge Status Pt. Type Provider Facility Loc./Unit Complaint [id number] 04/25/2019 20:19:00 020 05:18:00 DIS Inpatient DANG BUSTILLO MD Via [facility] 4TH ACUTE CVA,NSTEMI,HYPERGLYCEMIA,ARF,UTI [id number] 05/26/2015 16:30:00 016 23:59:59 CLS Outpatient DANG BUSTILLO MD Via [facility] HH DM TYPE 2, MALNUTRITION , HTN, ANEMIA [id number] 05/13/2015 10:09:00 016 18:11:00 DIS Inpatient DANG BUSTILLO MD Via [facility] 4TH SWB-HYPONATUREMIA IRON DEF, ANEMIA DM ii [id number] 05/08/2015 15:02:00 016 09:53:00 DIS Inpatient DANG BUSTILLO MD Via [facility] 4TH HYPONATUREMIA IRON DEF, ANEMIA DM ii [id number] 04/25/2015 10:36:00 016 23:59:59 CLS Outpatient DANG BUSTILLO MD Via [facility] RAD WT LOSS, ANEMIA [id number] 03/07/2015 07:26:00 016 11:40:00 DIS Outpatient DANG BUSTILLO MD Via [facility] SDC ANEMIA [id number] 03/05/2015 05:39:00 016 23:59:59 CLS Outpatient DANG BUSTILLO MD Via [facility] PREOP ANEMIA [id number] 02/28/2015 07:32:00 10:20:00 DIS Outpatient DANG BUSTILLO MD Via [facility] ANEMIA [id number] 02/27/2015 12:01:00 23:59:59 CLS Outpatient DANG BUSTILLO MD Via [facility] PREOP ANEMIA [id number] 12/23/2014 11:30:00 16:43:00 DIS Outpatient DANG BUSTILLO MD [address] ABD PAIN, RECTAL PAIN , CONSTIPATION [id number] 07/26/2013 06:34:00 12:28:00 DIS Outpatient CUCO HSU MD Via [facility] [id number] 07/19/2013 10:26:00 23:59:59 CLS Outpatient CUCO HSU MD Via [facility] PREOP [id number] 01/26/2013 11:04:00 13:45:00 DIS Outpatient LOWE DDSNEO Via [facility] [id number] 01/23/2013 07:52:00 23:59:59 CLS Outpatient LOWE DDSNEO Via [facility] PREOP [id number] 12/25/2012 14:32:00 17:45:00 DIS Inpatient DANG BUSTILLO MD Via [facility] 4TH [id number] 12/21/2012 12:32:00 23:59:59 [facility]
--- OUTSIDE RECORDS SUMMARY | 2019-04-27 23:37 | XMS REPORT | Continuity of Care Document ---
Author Organization Unknown Address Unknown Phone Unavailable Allergies Active Description Code Type Severity Reaction Onset Reported/Identified Relationship to Patient Clinical Status Yes No Known Drug Allergies [id number] Drug Allergy Unknown N/A 03/07/2015 Medications There [...] BUSTILLO MD Ot 369. 4 12/29/2012 IWONA AALS, DANG Bateman Ot 401. 9 12/29/2012 IWONA [...] 80 DUODENITIS WITHOUT BLEEDING 02/28/2015 IWONA ALAS, DANG Bateman Ot K31. 7 POLYP OF STOMACH [...] 05/13/2015 DANG BUSTILLO MD Ot Z79. 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 19 PATIENT'S NONCOMPLIANCE W [facility] TR 05/20/2015 DANG BUSTILLO MD [...] 4 ABNORMAL WEIGHT LOSS 04/26/2019 IWONA ALAS, DAGN Bateman Ot Z01.818 ENCOUNTER FOR OTHER PREPROCEDURAL [...] Code Description Performed By Per formed On [id number] EX CISION OF ABD SUBCU/FASCIA, OPEN APPRO [...] OF GROWTH Isolated NRG Bacterial blood culture [id number] NRG Bacterial blood culture - 04/25/19 18:46 [...] Status Pt. Type Provider Facility Loc./Unit Complaint [id number] 04/25/2019 20:19:00 020 05:18:00 DIS Inpatient DANG BUSTILLO MD Via [facility] 4TH ACUTE CVA,NSTEMI,HYPERGLYCEMIA,ARF,UTI [id number] 05/26/2015 16:30:00 016 23:59:59 CLS Outpatient DANG BUSTILLO MD Via [facility] HH DM TYPE 2, MALNUTRITION , HTN, ANEMIA [id number] 05/13/2015 10:09:00 016 18:11:00 DIS Inpatient DANG BUSTILLO MD Via [facility] 4TH SWB-HYPONATUREMIA IRON DEF, ANEMIA DM ii [id number] 05/08/2015 15:02:00 016 09:53:00 DIS Inpatient DANG BUSTILLO MD Via [facility] 4TH HYPONATUREMIA IRON DEF, ANEMIA DM ii [id number] 04/25/2015 10:36:00 016 23:59:59 CLS Outpatient DANG BUSTILLO MD Via [facility] RAD WT LOSS, ANEMIA [id number] 03/07/2015 07:26:00 016 11:40:00 DIS Outpatient DANG BUSTILLO MD Via [facility] SDC ANEMIA [id number] 03/05/2015 05:39:00 016 23:59:59 CLS Outpatient DANG BUSTILLO MD Via [facility] PREOP ANEMIA [id number] 02/28/2015 07:32:00 10:20:00 DIS Outpatient DANG BUSTILLO MD Via [facility] ANEMIA [id number] 02/27/2015 12:01:00 23:59:59 CLS Outpatient DANG BUSTILLO MD Via [facility] PREOP ANEMIA [id number] 12/23/2014 11:30:00 16:43:00 DIS Outpatient DANG BUSTILLO MD Via [address] ABD PAIN, RECTAL PAIN , CONSTIPATION [id number] 07/26/2013 06:34:00 12:28:00 DIS Outpatient CUCO HSU MD Via [facility] [id number] 07/19/2013 10:26:00 23:59:59 CLS Outpatient CUCO HSU MD Via [facility] PREOP [id number] 01/26/2013 11:04:00 13:45:00 DIS Outpatient LOWE DDSNEO Via [facility] [id number] 01/23/2013 07:52:00 23:59:59 CLS Outpatient LOWE DDSNEO Via [facility] PREOP [id number] 12/25/2012 14:32:00 17:45:00 DIS Inpatient DANG BUSTILLO MD Via [facility] 4TH [id number] 12/21/2012 12:32:00 23:59:59 [facility]
[2019-04-28] MEDS ORDERED: SCOPOLAMINE PATCH REMOVAL TP SCH (08:59)
--- NOTE | 2019-05-10 15:52 | Short Stay Summary-Hospitalist ---
History of Present Illness HPI/Chief Complaint Patient was brought in by family members due to altered mental status. She was unable to give any history. Should not been feeling well according and emergency room physician for at least the past 24 hours. She is a long-standing poorly controlled type II diabetic on insulin well known to me. 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 She had severe peripheral neuropathy as well. 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 She was subsequently admitted for comfort care after discussion with family. She in the early a.m. prior to my evaluation for the hospitalist evaluation on comfort care. Source: EMS, old records Exam Limitations: physical impairment Date Seen 04/26/19 Time Seen by a Provider: 15:48 Attending Physician Dang Bustillo MD PCP Dang Bustillo MD Referring Physician Date of Admission Apr 25, 2019 at 20:19 Home Medications & Allergies Home Medications Reviewed patient Home Medication Reconciliation performed by pharmacy medication reconciliations software test technician and/or nursing. Patients Allergies have been reviewed. Allergies Allergies Coded Allergies No Known Drug Allergies (Verified03/07/15) Past [id number] Hx Past Med/Social Hx: Reviewed and Corrections made Patient Social History Alcohol Use: Denies Use Recreational Drug Use: No Smoking Status: Unknown if Ever Smoked Recent Foreign Travel: No Contact w/other who traveled: No Recent Infectious Disease Expo: No Immunizations Up To Date Date of Influenza Vaccine: Dec 05, 2014 Past Medical History Currently Using CPAP: No Cardiac: Hypertension Reproductive: No Sexually Transmitted Disease: No HIV/AIDS: No Female Reproductive Disorders: Denies Endocrine: Diabetes, Insulin dep HEENT: Cataract Loss of Vision: Bilateral Hearing Impairment: Hard of Hearing Skin/Integumentary: Recent Skin Changes History of Blood Disorders: No Adverse Reaction to Blood [place]: No Family History Alcoholism 09 SISTER Family history: Allergy 09 SISTER Family history: Diabetes mellitus 03 MOTHER 09 SISTER Family history: Hypertension 03 MOTHER 09 BROTHER History of - respiratory disease 09 BROTHER Hypercholesterolemia 09 BROTHER No Family History of: Abdominal aortic aneurysm Matthew's disease Aphasia Cancer Cancer of colon Cataract Chest pain Congenital heart disease Congestive heart failure Cystic fibrosis Dementia Dysphagia Family history: Alzheimer's disease Family history: Arthritis Family history: Asthma Family history: Breast disease Family history: Cardiovascular disease Family history: Coronary thrombosis Family history: Gastrointestinal disease Family history: Glaucoma Family history: Osteoporosis Family history: Thyroid disorder Headache Hearing loss Heart disease Hereditary disease History of - anemia History of - disorder History of drug abuse Human immunodeficiency virus (HIV) seropositivity Infertile Kidney disease Malignant neoplasm of lung Myocardial infarction Parkinson's disease Prostate cancer Psychotic disorder Seizure disorder Stroke Tuberculosis Visual impairment No Pertinent Family Hx Review of Systems Constitutional: see HPI Physical Exam Physical Exam Vital Signs Capillary Refill : Greater Than 3 SecondsGreater Than 3 Seconds Height, Weight, BMI Height: 5'1.00" Weight: 148lbs. 0.0oz. 67.306400lt; 22.76 BMI Method: General Appearance: No Apparent Distress, WD/WN, Other (minimally responsive) HEENT: PERRL/EOMI, Normal ENT Inspection Neck: Normal Inspection; No JVD Respiratory: Lungs Clear, Normal Breath Sounds, No Accessory Muscle Use, No Respiratory Distress, Other (slightly) Cardiovascular: No Edema, No Murmur, Irregularly Irregular Gastrointestinal: Normal Bowel Sounds, Soft, Tenderness (suprapubic region) Extremity: Normal Inspection, No Pedal Edema Neurologic/Psychiatric: Alert, Other (response to pain and has spontaneous movement of the extremities. Answers "yes" when questioned about pain in the abdomen. Patient is not otherwise having any meaningful conversation or responses. She does localize to pain.) Results Results/Procedures Labs Patient resulted labs reviewed. Imaging: Reviewed Imaging Report Short Stay Diagnosis Discharge Diagnosis-Short Stay Admission Diagnosis 1. Hyperglycemic hyperosmolar coma presumably due to acute parietal infarct. 2. Acute kidney injury secondary to number 1. The 3. Non-ST segment elevation MD with underlying left bundle branch block and atrial fibrillation. 4. Uncontrolled type II diabetes mellitus insulin requiring. Final Discharge Diagnosis See admission diagnosis Conclusion Plan Care most appropriate for this patient and agreed to by family which was initiated. The patient quietly per nursing report without regaining consciousness. Clinical Quality Measures DVT/VTE Risk/Contraindication: Risk Factor Score Per Nursin RFS Level Per Nursing on Admit: 4+=Very High Other: comfort care DANG BUSTILLO MD May 10, 2019 15:52
== END 2019-04-26 05:18 | disposition expired | DRG 64 ==
LOC: EDUNIT# 18:28 → ER 18:29 → 4TH 20:19
PROVIDERS: ADMIT Internal Medicine; ATTEND Internal Medicine
DX: I63.89 Other cerebral infarction (principal); E11.01 Type 2 diabetes mellitus with hyperosmolarity with coma; I21.4 Non-ST elevation (NSTEMI) myocardial infarction; N17.9 Acute kidney failure, unspecified; N39.0 Urinary tract infection, site not specified; E11.65 Type 2 diabetes mellitus with hyperglycemia; E11.42 Type 2 diabetes mellitus with diabetic polyneuropathy; Z66 Do not resuscitate; Z51.5 Encounter for palliative care; I10 Essential (primary) hypertension; H26.9 Unspecified cataract; E11.69 Type 2 diabetes mellitus with other specified complication; H54.8 Legal blindness, as defined in USA; H91.90 Unspecified hearing loss, unspecified ear; I44.7 Left bundle-branch block, unspecified; I48.91 Unspecified atrial fibrillation; Z79.4 Long term (current) use of insulin
CPT/HCPCS: 36415; 51702; 70450; 71045; 80053; 81000; 82962; 83605; 84484; 85007; 85027; 85610; 85730; 86141; 87040; 87088; 87804; 93005; 96361; 96374; 96375; 96376